=== PATIENT | female | born 1975 | race Caucasian/White ===

== ENCOUNTER 2017-08-09 13:10 | Inpatient (IN) | payer MEDICAID ==
[~2017-08-09] VITALS: Ht 157.5 cm; Wt 99.8 kg
[~2017-08-09 13:10] MED LIST: ASEN10TA9 PO; BENZ1TAB61 PO; CLON0.12 PO; DIVA125T3 PO; FLUC50TA3 PO; FLUP10TA MT; LEVO50TA5 PO; LISI-170 PO
[2017-08-09] MEDS ORDERED: LORA1TAB PO (13:30)
[2017-08-09] MEDS ORDERED: OXCA300T3 PO (13:30)
[2017-08-09] MEDS ORDERED: TOPI50TA35 PO (13:30)
[2017-08-09] MEDS ORDERED: DIVA500T2 PO ×3 (13:30)
[2017-08-09] MEDS ORDERED: [UNRECOGNIZED DRUG - OTHER] PO (13:30)
[2017-08-09 13:59] LABS: HEMATOCRIT 35.8 % (34.6-47.8); HEMOGLOBIN 12.2 g/dL (11.7-16.4); WHITE BLOOD COUNT 8.1 x10^3/uL (3.4-10)
[2017-08-09 14:12] LABS: BLOOD UREA NITROGEN 9 mg/dL (7-18)
[2017-08-09 14:23] LABS: ASPARTATE AMINO TRANSFERASE 8 U/L (15-37)
[2017-08-09 14:25] LABS: ACETAMINOPHEN < 2 mcg/mL (10-30)
[2017-08-09 14:58] LABS: DAU SCREEN DISCLAIMER
[2017-08-09] MEDS ORDERED: ONDANSETRON 2MG/ML, 2ML IVPush PRN (15:30)
[2017-08-09] MEDS ORDERED: LACTULOSE 3.3 GM/5 ML ORAL.SOL RC ONE (15:30)
[2017-08-09] MEDS ORDERED: ONDANSETRON 2MG/ML, 2ML ONE (15:37)
[2017-08-09 16:36] VITALS: BP 114/70
[2017-08-09 18:44] VITALS: BP 114/84
[2017-08-09] MEDS ORDERED: LACTULOSE 20 GM/30 ML UDC PO SCH (20:00)
[2017-08-09] MEDS: OXCARBAZEPINE 150 MG TABLET PO SCH (20:26)
[2017-08-09] MEDS: TOPIRAMATE 25 MG TABLET PO SCH (20:26)
[2017-08-10 01:07] VITALS: BP 119/82
[2017-08-10 05:31] LABS: BLOOD UREA NITROGEN 8 mg/dL (7-18)
[2017-08-10 05:35] LABS: ASPARTATE AMINO TRANSFERASE 13 U/L (15-37)
[2017-08-10 07:38] VITALS: BP 122/74
[2017-08-10] MEDS: OXCARBAZEPINE 150 MG TABLET PO SCH ×2 (09:16→20:20)
[2017-08-10] MEDS: TOPIRAMATE 25 MG TABLET PO SCH ×2 (09:16→20:20)
[2017-08-10] MEDS: IBUPROFEN 200 MG TABLET PO PRN (13:54)
[2017-08-10] MEDS: HALOPERIDOL 5 MG/ML IM PRN (14:49)
[2017-08-10 18:41] VITALS: BP 121/77
[2017-08-10] MEDS ORDERED: NICOTINE 21 MG/24 HR PATCH.TD24 TD ONE (21:00)
[2017-08-11 01:15] VITALS: BP 134/84
[2017-08-11] MEDS ORDERED: GUAIFENESIN/DM 200-20MG, 10ML UDC PO PRN (11:00)
[2017-08-11] MEDS: TOPIRAMATE 25 MG TABLET PO SCH ×2 (11:37→20:00)
[2017-08-11] MEDS: OXCARBAZEPINE 150 MG TABLET PO SCH ×2 (11:37→20:00)
[2017-08-11 19:16] VITALS: BP 147/96
[2017-08-11] MEDS: HALOPERIDOL 5 MG/ML IM PRN (19:20)
[2017-08-12] MEDS: OXCARBAZEPINE 150 MG TABLET PO SCH ×2 (08:46→19:50)
[2017-08-12] MEDS: TOPIRAMATE 25 MG TABLET PO SCH ×2 (08:46→21:25)
[2017-08-12 12:04] VITALS: BP 150/85
[2017-08-12 19:06] VITALS: BP 149/91
[2017-08-12] MEDS ORDERED: HALOPERIDOL 5 MG TABLET PO PRN (19:30)
[2017-08-12] MEDS: HALOPERIDOL 5 MG/ML IM PRN (23:05)
[2017-08-13 02:50] VITALS: BP 138/87
[2017-08-13] MEDS ORDERED: ZIPRASIDONE 20 MG INJ IM ONE ×3 (03:00→20:00)
[2017-08-13] MEDS: TOPIRAMATE 25 MG TABLET PO SCH ×2 (09:20→20:11)
[2017-08-13] MEDS: OXCARBAZEPINE 150 MG TABLET PO SCH ×2 (09:49→20:11)
[2017-08-13] MEDS: IBUPROFEN 200 MG TABLET PO PRN ×2 (11:14→20:20)
[2017-08-13] MEDS: HALOPERIDOL 5 MG TABLET PO PRN ×2 (11:30→22:35)
[2017-08-13] MEDS: HALOPERIDOL 5 MG/ML IM PRN (14:08)
[2017-08-13 20:09] VITALS: BP 146/108
[2017-08-14] MEDS ORDERED: ZIPRASIDONE 20 MG INJ IM PRN (03:30)
[2017-08-14 07:30] VITALS: BP 151/95
[2017-08-14] MEDS: TOPIRAMATE 25 MG TABLET PO SCH ×2 (07:55→20:01)
[2017-08-14] MEDS: OXCARBAZEPINE 150 MG TABLET PO SCH ×3 (07:55→20:07)
[2017-08-14] MEDS: HALOPERIDOL 5 MG TABLET PO PRN ×2 (12:11→20:02)
[2017-08-14 19:00] VITALS: BP 134/89
[2017-08-14] MEDS ORDERED: AMIKACIN 1000 MG/4 ML IM ONE (22:30)
[2017-08-15 00:27] VITALS: BP 98/51
[2017-08-15] MEDS: HALOPERIDOL 5 MG TABLET PO PRN (00:37)
[2017-08-15] MEDS ORDERED: ZIPRASIDONE 20MG CAPSULE ONE (09:45)
[2017-08-15] MEDS: TOPIRAMATE 25 MG TABLET PO SCH (09:47)
[2017-08-15] MEDS: OXCARBAZEPINE 150 MG TABLET PO SCH (09:48)
[2017-08-15] MEDS ORDERED: ZIPRASIDONE 20MG CAPSULE PO SCH (10:00)
[2017-08-15] MEDS ORDERED: RIFAXIMIN 550 MG TABLET PO SCH ×2 (10:00→21:00)
== END 2017-08-15 11:31 | DRG 642 ==
LOC: ED 13:35 → EDIP 15:10 → 3NE 16:25 → 2N 08-11 17:47
PROVIDERS: ADMIT Family Medicine; ATTEND Family Medicine
DX: E72.20 Disorder of urea cycle metabolism, unspecified (principal); E66.01 Morbid (severe) obesity due to excess calories; Z68.41 Body mass index [BMI] 40.0-44.9, adult; F25.9 Schizoaffective disorder, unspecified; F29 Unspecified psychosis not due to a substance or known physiological condition; Z90.49 Acquired absence of other specified parts of digestive tract; Z79.899 Other long term (current) drug therapy
CPT/HCPCS: 36415; 76700; 80053; 80156; 80164; 80307; 80329; 81001; 82140; 83605; 83735; 84443; 84630; 85025; 85610; 87086; 93005; 96374; J2405; J3486; G0479; G0480; J1630

== ENCOUNTER 2018-02-02 13:40 | Emergency (ER) | payer MEDICAID ==
[~2018-02-02] VITALS: Ht 160 cm; Wt 82.0 kg
[~2018-02-02 13:40] MED LIST changes: +DIVA500T2 PO; +LORA1TAB PO; +OXCA300T3 PO; +TOPI50TA35 PO; +[UNRECOGNIZED DRUG - OTHER] PO
[2018-02-02 13:50] VITALS: BP 162/93
[2018-02-02] MEDS ORDERED: SODIUM CHLORIDE FLUSH 10ML SYR IVF ONE (14:00)
[2018-02-02 14:19] LABS: BASOPHILS # (AUTO) 0.05 x10^3/uL (0-0.1); BASOPHILS % (AUTO) 1 % (0-1); EOSINOPHILS # (AUTO) 0.37 x10^3/uL (0-0.4); EOSINOPHILS % (AUTO) 4 % (1-7); LYMPHOCYTES # (AUTO) 2.56 x10^3/uL (1-3.4); LYMPHOCYTES % (AUTO) 31 % (22-44); MD NO; MEAN CORPUSCULAR HEMOGLOBIN 29.9 pg (27.0-34.8); MEAN CORPUSCULAR HGB CONC 32.9 g/dL (32.4-35.8); MEAN CORPUSCULAR VOLUME 90.9 fL (80-100); MEAN PLATELET VOLUME 7.1 fL (7.4-10.4); MONOCYTES # (AUTO) 0.87 x10^3/uL (0.2-0.8); MONOCYTES % (AUTO) 10 % (2-9); NEUTROPHILS # (AUTO) 4.51 x10^3/uL (1.8-6.8); NEUTROPHILS % (AUTO) 54 % (42-75); PLATELET COUNT 317 x10^3/uL (130-400); RED BLOOD COUNT 4.43 x10^6/uL (3.82-5.3); RED CELL DISTRIBUTION WIDTH 15.1 % (9.6-15.2)
[2018-02-02 14:28] LABS: ALBUMIN 3.5 g/dL (3.4-5.0); ANION GAP 6 mmol/L (5-15); CALCIUM 8.2 mg/dL (8.5-10.1); CHLORIDE 103 mmol/L (98-107)
[2018-02-02 14:31] LABS: ALANINE AMINOTRANSFERASE 17 U/L (12-78); ALKALINE PHOSPHATASE 63 U/L (45-117); BILIRUBIN,TOTAL 0.2 mg/dL (0.2-1.0); CREATININE 0.51 mg/dL (0.55-1.02); TOTAL PROTEIN 7.2 g/dL (6.4-8.2)
== END 2018-02-02 15:03 | disposition left against medical advice (07) ==
LOC: ED 14:07
DX: R53.1 Weakness (principal); Z00.00 Encounter for general adult medical examination without abnormal findings
CPT/HCPCS: 36415; 80053; 82140; 83690; 85025; 99284

== ENCOUNTER 2019-01-09 11:28 | Emergency (ER) | payer MEDICAID ==
[~2019-01-09] VITALS: Ht 154.9 cm; Wt 70.0 kg
[~2019-01-09 11:28] MED LIST changes: -DIVA125T3 PO; +DIVA125T31 PO
[2019-01-09] MEDS ORDERED: ZIPRASIDONE 20 MG INJ IM ONE ×5 (11:35→22:30)
--- NOTE | 2019-01-09 11:46 | NUR ---
PATIENT BROUGHT IN BY [facility] STAFF. PATIENT WAS [id number] TODAY BUT BECAME PSYCHOTIC AND UNREASONABLE WITH THE OVEN OPERATOR AUTOMATIC. SHE WAS PLACED ON A LEGAL 2000 BECAUSE SHE WAS NOT SAFE FOR DISCHARGE. PATIENT ARRIVED IN [facility] ER AND WAS NOT COOEPRATIVE, NEEDED A SHOW OF FORCE AND VERBAL PROMPTING BY BOTH RN'S AND SECURITY. PATIENT AGREES TO CHANGE INTO GOWN, BUT REFUSES TEMPERTURE AND GIVING A URINE. ADRIANETN BECAME INCREASINGLY LOUD VERBALLY AND HAS A HISTORY AT THIS HOPITAL AND AT HE [facility] OF BECOMING VIOLENT. PATIENT IS CURRENTLL ON HER MENSES AND WAS GIVEN CLEAN UNDERWEAR AND PADS. PATIENT REFUSED LAB DRAW. SITTER AT BEDSIDE
[2019-01-09] MEDS ORDERED: PLEASE ENTER HEIGHT AND WEIGHT MC SCH (12:00)
[2019-01-09] MEDS ORDERED: PLEASE ENTER ALLERGIES MC SCH (12:00)
--- NOTE | 2019-01-09 12:11 | NUR ---
MEAL TRAY ORDERED, PATIENT STATES THAT SHE WILL COOPERATE WITH BLOOD DRAW AT THIS TIME
--- NOTE | 2019-01-09 12:19 | NUR ---
PATIENT COOPERATIVE WITH BLOOD DRAW AT THIS TIME
[2019-01-09 12:32] LABS: BASOPHILS # (AUTO) 0.07 x10^3/uL (0-0.1); BASOPHILS % (AUTO) 1 % (0-1); EOSINOPHILS # (AUTO) 0.25 x10^3/uL (0-0.4); EOSINOPHILS % (AUTO) 2 % (1-7); LYMPHOCYTES # (AUTO) 2.28 x10^3/uL (1-3.4); LYMPHOCYTES % (AUTO) 18 % (22-44); MD NO; MEAN CORPUSCULAR HEMOGLOBIN 29.5 pg (27.0-34.8); MEAN CORPUSCULAR VOLUME 86.6 fL (80-100); MEAN PLATELET VOLUME 8.1 fL (7.4-10.4); MONOCYTES # (AUTO) 0.79 x10^3/uL (0.2-0.8); MONOCYTES % (AUTO) 6 % (2-9); NEUTROPHILS # (AUTO) 9.56 x10^3/uL (1.8-6.8); NEUTROPHILS % (AUTO) 74 % (42-75); PLATELET COUNT 320 x10^3/uL (130-400); RED BLOOD COUNT 5.27 x10^6/uL (3.82-5.3); RED CELL DISTRIBUTION WIDTH 17.3 % (9.6-15.2)
[2019-01-09 12:41] LABS: ALBUMIN 3.8 g/dL (3.4-5.0); ANION GAP 5 mmol/L (5-15); CALCIUM 8.8 mg/dL (8.5-10.1); CHLORIDE 106 mmol/L (98-107); CREATININE 0.63 mg/dL (0.55-1.02)
[2019-01-09 12:43] LABS: ACETAMINOPHEN < 2 mcg/mL (10-30); SALICYLATE LEVEL < 1.7 mg/dL (2.8-20.0)
--- NOTE | 2019-01-09 13:49 | NUR ---
SPOKE WITH CRISS HUTCHINSON RN [phone], [phone] WHO HAD INFORMATION ON PATIENT'S DISCHARGE
--- NOTE | 2019-01-09 15:13 | NUR ---
SPOKE WITH AGUSTIN MANCUSO ABOUT MED HISTORY
[2019-01-09] MEDS ORDERED: LORazepam 1MG TABLET PO PRN (15:30)
--- NOTE | 2019-01-09 15:31 | NUR ---
PATIENT BECAME IRRITATED WITH SOC AND HAD BEHAVIOR THAT APPEARED TO WANT TO BE PHYSICALLY VIOLENT TOWARDS STAFF AND SOC MONITOR. MD UNABLE TO COMPLETE THE EXAM. MD NOTIFIED OF PATIENT BEHAVIOR AND PATIENT GIVEN 10 MG IM GEODON. PATIENT NEEDED SHOW OF FORCE BY BECKYY TO COMPLETE THIS
--- NOTE | 2019-01-09 15:33 | NUR ---
SITTER AT BS
--- NOTE | 2019-01-09 16:08 | NUR ---
PATIETN CALMER, MEAL TRAY ORDERED
--- NOTE | 2019-01-09 16:35 | NUR ---
PATIENT GIVEN MEAL TRAY
--- NOTE | 2019-01-09 17:14 | NUR ---
PATIENT RESTING. INITALLY ASKED SITTER FOR ANOTHER SHOT BUT WHEN ASKED BY RN, SHE DECLINED. Les OFFERED ATIVAN PO AND SHE ALSO DECLINED THIS
--- NOTE | 2019-01-09 19:08 | NUR ---
REPORT RECEIVED FROM JHON CERVANTES, ASSUMING CARE AT THIS TIME. PT SLEEPING IN ROOM, RR EVEN AND UNLABORED, SITTER IN GAN FOR CONTINUOUS MONITORING
--- NOTE | 2019-01-09 20:30 | NUR ---
PT SLEEPING IN BED, RR EVEN AND UNLABORED. ALL NEEDS MET AT THIS TIME. SITTER IN GAN FOR CONTINUOUS MONITORING
--- NOTE | 2019-01-09 21:20 | NUR ---
PT SLEEPING IN BED, RR EVEN AND UNLABORED. ALL NEEDS MET AT THIS TIME. SITTER IN GAN FOR CONTINUOUS MONITORING
--- NOTE | 2019-01-09 22:03 | NUR ---
PT WOKE UP AND IMMEDIATELY STARTED YELLING, WHEN APPROACHED BY SITTER PT SWUNG AT THEM. SECURITY CALLED AND NOTIFED. ORDER FOR DEIDRA RECIEVED. PT MEDICATED. PT CURRENTLY SITTING IN BED. REQUESTED SPRITE, GIVEN. ASKED PT IF SHE HAD ANY OTHER NEEDS, NO REQUESTS AT THIS TIME. SITTER IN GAN FOR CONINUOUS MONITORING
--- NOTE | 2019-01-09 22:37 | NUR ---
PT UP TO RESTROOM WITH STEADY GAIT, UA COLLECTED AND SENT TO LAB. PT CURRENTLY BACK IN ROOM SITTING ON BED. SITTER IN GAN FOR CONTINUOUS MONITORING
[2019-01-09 22:56] LABS: AMPHETAMINE SCREEN, URINE Negative (Negative); BARBITURATE SCREEN, URINE Negative (Negative); BENZODIAZEPINE SCREEN, URINE Negative (Negative); CANNABINOID SCREEN, URINE Negative (Negative); COCAINE SCREEN, URINE Negative (Negative); METHADONE SCREEN, URINE Negative (Negative); OPIATE SCREEN, URINE Negative (Negative)
--- NOTE | 2019-01-09 23:04 | NUR ---
RECEIVED REPORT FROM ANGELICA DE LEON RN TO ASSUME CARE OF PT.
--- NOTE | 2019-01-09 23:41 | NUR ---
PT. RESTING ON GURNEY WITH NADN. RIGHT SIDE LYING. RESP VISIBLE AND NON-LABORED. ROOM IS SECURED AND SITTER IN GAN.
--- NOTE | 2019-01-09 23:54 | NUR ---
PACKET FAXED TO [facility] AND [facility]. AWAITING FAX CONFIRMATION.
--- NOTE | 2019-01-10 00:38 | NUR ---
BREAK RN: PT SLEEPING. EVEN RISE AND FALL OF CHEST OBSERVED. SITTER IN VIEW OF PT
--- NOTE | 2019-01-10 01:03 | NUR ---
CONFIRMATION FAX RECEIVED FOR [facility] AND [facility].
--- NOTE | 2019-01-10 01:46 | NUR ---
PT. RESTING ON GURNEY WITH EYES CLOSED. NADN. NON-LABORED RESPIRATIONS VISIBLE.
--- NOTE | 2019-01-10 02:42 | NUR ---
PT. CONTINUES RESTING ON GURNEY WITH EYES CLOSED. NADN. RESP VISIBLE AND NON-LABORED. ROOM REMAINS SECURED. SITTER IN GAN.
--- NOTE | 2019-01-10 03:57 | NUR ---
PT. REMAINS ON GURNEY IN SUPINE POSITION WITH EYES CLOSED. NADN. EVEN CHEST RISE/FALL VISIBLE. ROOM SECURED. SITTER IN GAN.
--- NOTE | 2019-01-10 04:49 | NUR ---
PT. REMAINS ON GURNEY IN SUPINE POSITION WITH EYES CLOSED. NADN. EVEN CHEST RISE/FALL VISIBLE. ROOM SECURED. SITTER IN AGN.
--- NOTE | 2019-01-10 05:48 | NUR ---
PT. RESTING ON GURNEY WITH NADN. RESPIRATIONS REMAIN EVEN AND NON LABORED. ROOM REMAINS SECURED. SITTER IN GAN.
--- NOTE | 2019-01-10 07:04 | NUR ---
REPORT TO BILLY MCLAUGHLIN. PT. CONTINUES RESTING ON GURNEY WITH EYES CLOSED. NADN. ROOM REMAINS SECURED. SITTER IN GAN.
--- NOTE | 2019-01-10 07:33 | NUR ---
Recieved bedside report from BILLY Donaldson. All questions answered. Assuming care of pt. Pt requesting coffee. Provided pt decaf coffee and moved pt from [place] to hospital bed. Provided pt feminine napkin and new disposable underwear. Pt appreciative. Pt has unlabored respirations with even chest rise and fall. NADN. Pt smiling and cooperative with staff. No other needs expressed at this time.
--- NOTE | 2019-01-10 07:38 | NUR ---
Sitter near doorway in direct line of sight for observation.
--- NOTE | 2019-01-10 08:17 | NUR ---
Provided pt breakfast tray. Pt appreciative. Pt requesting coffee. Provided pt decaf coffee. Pt smiling and says, "Thank you." Pt denies any other needs at this time. Pt begins eating breakfast tray. AGUILA. Sitter near doorway in direct line of sight for observation.
--- NOTE | 2019-01-10 09:09 | NUR ---
Pt requesting sprite. Pt provided a sprite. Pt appreciative. NADN. No other needs expressed at this time.
[2019-01-10] MEDS ORDERED: LORazepam 1MG TABLET ONE (09:25)
[2019-01-10 10:18] VITALS: BP 136/84
--- NOTE | 2019-01-10 11:07 | NUR ---
Pt provided feminine napkins. Pt states, "Thank you." Pt provided medication for anxiety per EMAR per pt request. Pt took medication and stated appreciation. Pt denies other needs at this time. NADN. Pt laying supine on hospital bed awake. Sitter near doorway in direct line of sight for observation. Lunch tray ordered.
--- NOTE | 2019-01-10 12:07 | NUR ---
Provided bedside report to BILLY Gutiérrez. All questions answered. BILLY Gutiérrez to assume care of pt's at this time.
--- NOTE | 2019-01-10 12:39 | NUR ---
REPORT FROM ARNOLDO CERVANTES AT 1200. MEAL TRAY PROVIDED, SITTER REMAINS AT DOORWAY FOR CLOSE OBS.
--- NOTE | 2019-01-10 13:42 | NUR ---
PT SLEEPING, NAD, SITTER AT DOORWAY.
--- NOTE | 2019-01-10 14:28 | NUR ---
PT AWAKE, PROVIDED SPRITE ON REQUEST.
--- NOTE | 2019-01-10 14:51 | NUR ---
REPORT TO MICHELLE AT [facility], ACCEPTING PT AT THIS TIME. TRANSPORT BEING ARRANGED BY THROUGHPUT.
--- NOTE | 2019-01-10 15:50 | NUR ---
NO BELONGING BAG FOUND IN LOCKER. PT WEARING GOWN, SPORTS BRA, AND UNDERPANTS. PT ASKED IF CAME WITH BELONGINGS FROM [facility] AND PT STATES "NO, THEY STOLE THEM AT THE [facility]. I GAVE DOCTOR $3000 TO BUY ME A NEW DRESS AND HE JUST STOLE THE MONEY, NO DRESS".
== END 2019-01-10 16:16 ==
LOC: EDBD 11:28 → ED 13:26 → MERGE 13:26 → UNDOADMIN 15:25 → EDIP 15:25 → ED 01-10 16:16
DX: F29 Unspecified psychosis not due to a substance or known physiological condition (principal); F17.200 Nicotine dependence, unspecified, uncomplicated
CPT/HCPCS: 36415; 80048; 80307; 82040; 84703; 85025; 96372; 99285; J3486

== ENCOUNTER 2019-02-07 13:23 | Inpatient (IN) | payer MEDICAID ==
[~2019-02-07] VITALS: Ht 157.5 cm; Wt 90.0 kg
[2019-02-07] MEDS ORDERED: OLANZAPINE 5 MG TABLET PO ONE (13:30)
--- NOTE | 2019-02-07 13:43 | NUR ---
SEE TRIAGE NOTE. PT SEEN HERE LAST MONTH FOR PSYCHOSIS, ON MENSES AT THAT TIME AND REFUSED PADS. ATTEMPT TO BREATHALYZE, PT REFUSES TO COOPERATE. ED SUP INFORMED OF NEED FOR SITTER.
[2019-02-07 13:55] LABS: BASOPHILS # (AUTO) 0.08 x10^3/uL (0-0.1); BASOPHILS % (AUTO) 1 % (0-1); EOSINOPHILS # (AUTO) 0.22 x10^3/uL (0-0.4); EOSINOPHILS % (AUTO) 2 % (1-7); LYMPHOCYTES # (AUTO) 2.03 x10^3/uL (1-3.4); LYMPHOCYTES % (AUTO) 16 % (22-44); MD NO; MEAN CORPUSCULAR HEMOGLOBIN 29.8 pg (27.0-34.8); MEAN CORPUSCULAR HGB CONC 32.8 g/dL (32.4-35.8); MEAN PLATELET VOLUME 7.6 fL (7.4-10.4); MONOCYTES # (AUTO) 0.76 x10^3/uL (0.2-0.8); MONOCYTES % (AUTO) 6 % (2-9); NEUTROPHILS # (AUTO) 9.53 x10^3/uL (1.8-6.8); NEUTROPHILS % (AUTO) 76 % (42-75); PLATELET COUNT 359 x10^3/uL (130-400); RED BLOOD COUNT 4.58 x10^6/uL (3.82-5.3); RED CELL DISTRIBUTION WIDTH 16.9 % (9.6-15.2)
[2019-02-07] MEDS ORDERED: OLANZAPINE 5 MG TABLET ONE (13:56)
[2019-02-07 14:04] LABS: ALANINE AMINOTRANSFERASE 15 U/L (12-78); ALBUMIN 3.5 g/dL (3.4-5.0); ANION GAP 5 mmol/L (5-15); CALCIUM 8.5 mg/dL (8.5-10.1); CHLORIDE 106 mmol/L (98-107)
[2019-02-07 14:06] LABS: ALKALINE PHOSPHATASE 66 U/L (45-117); BILIRUBIN,TOTAL 0.4 mg/dL (0.2-1.0); SALICYLATE LEVEL < 1.7 mg/dL (2.8-20.0); TOTAL PROTEIN 6.9 g/dL (6.4-8.2)
--- NOTE | 2019-02-07 14:08 | NUR ---
REPORT FROM REKHA CERVANTES. PT MOVED TO ROOM 40, AMBULATORY WITH STEADY GAIT, FOR CLOSE OBSERVATION WITH SITTER IN PLACE. ROOM SECURED FOR SAFETY. PT DISPLAYS DILUSIONAL THINKING. STATED "IDID MY OWN SURGEY I DON'T KNOW WHY YOU GUYS ARE FREAKING OUT. I WANT TO GET OUT OF HERE. I'M ON MY BLUETOOTH. I HAD TO REATTACH MY INSIDES TO MY BRAIN." PT APPERAS TO HAVE MENSTRAL BLEEDING ON LEGS. PT ASNWERS ORIENTATION QUESTIONS APPROPRIATLY, A&OX4. NEURO APPEARS INTACT DESPITE DELUSIONAL THINKING. PT DENIES ANY MEDICAL HISTORY. NO VISABLE SIGNS OF TRAUMA OR INJURY. PT DENIES ANY PAIN OR HEAD INJURIES.
--- NOTE | 2019-02-07 14:08 | NUR ---
REPORT FROM REKHA CERVANTES. PT MOVED TO ROOM 40.
--- NOTE | 2019-02-07 14:19 | NUR ---
PT BELONGINGS, 1 BAG, CLOTHES, SECURED IN ED LOCKER.
--- NOTE | 2019-02-07 14:47 | NUR ---
PT AMBULATORY TOBATHROOM WITH STEADY GAIT. STATES SHE IS UNABLE TO URINATE. SITTER IN PLACE.
--- NOTE | 2019-02-07 15:27 | NUR ---
PT RESTING ON GURNEY WITH EYES CLOSED. RESP EVEN AND UNLABORED. SITTER IN PLACE.
--- NOTE | 2019-02-07 15:47 | NUR ---
PT PROVIDED WITH WATER. ADVISED NEED FOR UA.
--- NOTE | 2019-02-07 15:48 | NUR ---
ED SECURITY DIET TRAY PROVIDED TO PT.
--- NOTE | 2019-02-07 16:12 | NUR ---
PT AMBULATORY TO BATHROOM WITH STEADY GAIT FOR URINE SAMPLE. WHILE IN BATHROOM PT SCREAMING "I CAN'T PEE IF I DON'T HAVE LIVER AND KIDNEYS. I AM GOING TO REPORT YOU FOR DOING SURGERY ON MY BODY. ALL YOU ARE GOING TO HELL. I HOPE YOU LIKE THE SNOW." PT WALKED BACK TO ROOM AND NOW RESTING ON GURNEY WITH SITTER IN PLACE.
--- NOTE | 2019-02-07 16:33 | NUR ---
PT AMBULATORY TO BATHROOM WITH STEADY GAIT. URINE SAMPLE OBTAINED AND WALKED TO LAB. PT BACK TO ROOM, RESTING ON GURNEY. SITTER IN PLACE WITH EYES ON PT.
[2019-02-07 16:57] LABS: AMPHETAMINE SCREEN, URINE Negative (Negative); BARBITURATE SCREEN, URINE Negative (Negative); BENZODIAZEPINE SCREEN, URINE Negative (Negative); CANNABINOID SCREEN, URINE Positive (Negative); COCAINE SCREEN, URINE Negative (Negative); METHADONE SCREEN, URINE Negative (Negative); OPIATE SCREEN, URINE Negative (Negative)
--- NOTE | 2019-02-07 17:04 | NUR ---
Delma melendrez in [facility] - 02/07/19 at [address] MURRAY PT WILL REMAIN ADMIT TO HOSPITAL.
--- NOTE | 2019-02-07 17:54 | NUR ---
PT RESTING ON [facility]. VSS. SITTER IN PLACE WITH EYES ON PT.
--- NOTE | 2019-02-07 18:57 | NUR ---
SBAR HANDOFF REPORT TO LAY CERVANTES
--- NOTE | 2019-02-07 18:58 | NUR ---
STEFANI FAXED PT PAPERWORK TO , [facility], AND [facility].
--- NOTE | 2019-02-07 19:01 | NUR ---
Pt report from Michael rothman. This rn to assume care of pt. Sleeping comfortably on gurney. Rr even and unlabored.
--- NOTE | 2019-02-07 19:10 | NUR ---
Patient assessed by [facility]. Refused at 3E by psychiatrist. [facility] director refused for 2N.
--- NOTE | 2019-02-07 20:34 | NUR ---
Sleeping comfortably on gurney. Rr even and unlabored.
--- NOTE | 2019-02-07 21:40 | NUR ---
Given decaf coffee and milk per request. No other immediate needs.
[2019-02-07] MEDS: OXCARBAZEPINE 300MG TABLET PO SCH (22:09)
--- NOTE | 2019-02-07 22:21 | NUR ---
Pt refusing night time medications. Sleeping comfortably on gurdoug. Jazmine.
--- NOTE | 2019-02-07 23:01 | NUR ---
Sleeping comfortably on gurney. Rr even and unlabored.
--- NOTE | 2019-02-08 00:21 | NUR ---
FLOAT RN: PT RESTING IN ROOM. SITTER AT DOOR. NO ACUTE DISTRESS NOTED. WILL CONTINUE TO MONITOR WHILE PRIMARY RN IS ON BREAK.
--- NOTE | 2019-02-08 01:01 | NUR ---
Sleeping comfortably on gurney. Rr even and unlabored.
--- NOTE | 2019-02-08 02:22 | NUR ---
Sleeping comfortably on gurney. Rr even and unlabored.
--- NOTE | 2019-02-08 03:10 | NUR ---
Sleeping comfortably on gurney. Rr even and unlabored.
--- NOTE | 2019-02-08 04:10 | NUR ---
Sleeping comfortably on gurney. Rr even and unlabored.
--- NOTE | 2019-02-08 05:25 | NUR ---
Sleeping comfortably on gurney. Rr even and unlabored.
[2019-02-08 06:50] LABS: BASOPHILS # (AUTO) 0.03 x10^3/uL (0-0.1); BASOPHILS % (AUTO) 0 % (0-1); EOSINOPHILS # (AUTO) 0.32 x10^3/uL (0-0.4); EOSINOPHILS % (AUTO) 3 % (1-7); LYMPHOCYTES # (AUTO) 2.24 x10^3/uL (1-3.4); LYMPHOCYTES % (AUTO) 23 % (22-44); MD NO; MEAN CORPUSCULAR HEMOGLOBIN 29.8 pg (27.0-34.8); MEAN CORPUSCULAR HGB CONC 32.6 g/dL (32.4-35.8); MEAN CORPUSCULAR VOLUME 91.7 fL (80-100); MEAN PLATELET VOLUME 7.6 fL (7.4-10.4); MONOCYTES # (AUTO) 0.65 x10^3/uL (0.2-0.8); MONOCYTES % (AUTO) 7 % (2-9); NEUTROPHILS # (AUTO) 6.72 x10^3/uL (1.8-6.8); NEUTROPHILS % (AUTO) 68 % (42-75); PLATELET COUNT 300 x10^3/uL (130-400); RED BLOOD COUNT 4.49 x10^6/uL (3.82-5.3); RED CELL DISTRIBUTION WIDTH 16.6 % (9.6-15.2)
[2019-02-08 06:56] LABS: ANION GAP 5 mmol/L (5-15); CALCIUM 8.6 mg/dL (8.5-10.1); CHLORIDE 108 mmol/L (98-107)
[2019-02-08 06:58] LABS: CREATININE 0.52 mg/dL (0.55-1.02)
[2019-02-08] MEDS ORDERED: LISINOPRIL 20 MG TABLET ONE (08:37)
[2019-02-08] MEDS ORDERED: LORazepam 1MG TABLET ONE ×3 (08:38→20:08)
[2019-02-08] MEDS: LORazepam 1MG TABLET PO PRN ×3 (08:46→20:10)
[2019-02-08] MEDS: OXCARBAZEPINE 300MG TABLET PO SCH ×2 (08:46→20:10)
[2019-02-08] MEDS: LISINOPRIL 20 MG TABLET PO SCH (08:47)
--- NOTE | 2019-02-08 08:52 | NUR ---
PT DENIES ANY CURRENT THOUGHTS OF HARMING HERSELF, AND SHE REFUSES TO GIVE DETAILS ABOUT PAST ATTEMPTS. PT IS PARANOID AND DELUSIONAL, THINKS PEOPLE ARE TRYING TO HARM HER AND "FUCK UP HER LIFE". PT STATES "I AM ONLY 15 YEARS OLD, THIS IS NO TYPE OF LIFE FOR A KID. SYBIL DEY SAYS I LOOK LIKE A MAN". NO ACUTE SIGNS OF DISTRESS. PT IS CURRENTLY CALM AND COOPERATING WITH MEDS AND MOST QUESTIONS.
--- NOTE | 2019-02-08 09:16 | NUR ---
SPOKE WITH RONY TY REGARDING PT. HE WOULD LIKE TO BE UPDATED ABOUT WHERE THE PT WILL GO. HE SAID THAT SHE WAS JUST RELEASED FROM A PSYCH FACILITY AND A LEGAL HOLD ON 01/29/19. HE GAVE ME INFO REGARDING PT MEDICATIONS, WILL UPDATE MED REC.
[2019-02-08] MEDS: LEVOTHYROXINE 50 MCG TABLET PO SCH (09:23)
[2019-02-08] MEDS: TOPIRAMATE 25 MG TABLET PO SCH (09:23)
--- NOTE | 2019-02-08 09:27 | NUR ---
PT CALM AND RESTING IN BED. PT GIVEN FOOD AND JUICE, TOLERATING FOOD. VSS. NO ACUTE SIGNS OF DISTRESS.
--- NOTE | 2019-02-08 10:01 | NUR ---
REPORT TO WISAM CERVANTES
--- NOTE | 2019-02-08 10:01 | NUR ---
REPORT TO WISAM CERVANTES
--- NOTE | 2019-02-08 11:41 | NUR ---
pt in room at this time. pt resting comfortably with even resps. lunch ordered for pt at and awaiting arrival. room secured at this time and sitter in hallway.
--- NOTE | 2019-02-08 13:59 | NUR ---
pt up in room screaming and punching the air. pt redirected to bed and encouraged to calm down. pt offered juice and sprite in safety cups. pt no in bed calm and quiet Addendum: 02/08/19 at 1401 by ARMANDO now in bed.
--- NOTE | 2019-02-08 14:42 | NUR ---
PT RESTING AT THIS TIME. ROOM SECURE AND SITTER IN GAN.
--- NOTE | 2019-02-08 18:05 | NUR ---
Pt calm and cooporative. Bedding and gown changed d/t blood
--- NOTE | 2019-02-08 19:40 | NUR ---
pt cooperative with vitals, see charted. pt sitting calmly in bed. pt finished dinner tray. tray removed from room. sitter at door. will continue to monitor.
--- NOTE | 2019-02-08 20:15 | NUR ---
PT ASKING FOR MULTIPLE BEVERAGES FROM SITTER. ASKING FOR COFFEE, WATER, JUICE ETC. PT GIVEN WATER WITH MEDS. PT MAKING STRANGE STATEMENTS ABOUT A MAN NAMED SANDOVAL WHO IS AFTER HER. PT SINGING IN ROOM. PT GIVEN DECAF COFFEE. SITTER AT DOOR FOR FREQUENT OBS.
--- NOTE | 2019-02-08 21:08 | NUR ---
PT ASKING FOR CRANBERRY JUICE. PT INFORMED SHE CAN HAVE JUICE IN A LITTLE SHE JUST HAD WATER AND COFFEE. PT SEEMS OKAY WITH THIS FOR NOW. WILL CONTINUE TO MONITOR. SITTER ON FREQUENT WATCH OF PT.
--- NOTE | 2019-02-08 22:09 | NUR ---
PT CONTINUING TO ASK SITTERS FREQUENTLY FOR BEVERAGES. PT GIVEN SPRITE BY SITER, PT STATED AFTER DRINKING THE SPRITE, THAT IT HURT HER STOMACH. PT INFORMED TO LET HER STOMACH REST SINCE IT IS NOW HURT. PT SITTING IN BED TALKING TO NO ONE. WILL CONTINUE TO MONITOR.
--- NOTE | 2019-02-08 23:45 | NUR ---
pt getting in and out of bed. pt offered meds to help her sleep. pt stated no, "I just have to move because the asbestos is blowing in my face." pt given more decaf coffee. will continue to monitor. sitter at door.
--- NOTE | 2019-02-09 00:12 | NUR ---
PT STANDING BEHIND CURTAINS AND IN DOOR. PT SITTING IN BED AT TIMES. PT AGAIN REFUSED OFFERED MEDS TO HELP HER SLEEP. PT STATED, "I'VE BEEN SLEEPING ALL WEEK, I NEED TO BE AWAKE NOW." SITTER AT DOOR FOR FREQUENT OBS.
--- NOTE | 2019-02-09 01:39 | NUR ---
PT SITTING UP ON BED, TALKING TO SITTER.
--- NOTE | 2019-02-09 02:53 | NUR ---
PT ATTEMPTED TO LEAVE UNIT. PT WALKED BACK TO HER ROOM WITHOUT INCIDENT. PT STATED SHE IS HUNGRY. PT TO RECEIVE SNACK. WILL CONTINUE TO MONITOR.
--- NOTE | 2019-02-09 03:00 | NUR ---
OFFERED PT CRACKERS, PT STATED, "I DON'T WANT ANYTHING FROM YOU, I'M WAITING FOR THE POLICE TO SHOW UP." PT SITTING UP ON BED, SITTER AT DOOR. WILL CONTINUE TO MONITOR.
[2019-02-09] MEDS ORDERED: LORazepam 2 MG/ML, 1ML ONE (03:31)
[2019-02-09] MEDS ORDERED: LORazepam 2 MG/ML, 1ML IM ONE (03:45)
--- NOTE | 2019-02-09 03:50 | NUR ---
PT BECOMING HIGHLY AGITATED. HOSPITALIST CALLED FOR ORDERS. MED ORDERS GIVEN. PT MEIDCATED WITH ORDERED MED WITH SECURITY ASSIST. PT WILL ING TO ACCEPT CRACKERS FROM SECURITY. PT UP TO THE BATHROOM STEADILY WITH SITTER. PT NOW BACK IN BED EATING CRACKERS. WILL CONTINUE TO MONITOR.
--- NOTE | 2019-02-09 04:45 | NUR ---
PT RESTING IN BED WITH EYES CLOSED. PT SNORING, REST NON LABORED. SITTER AT DOOR. WILL CONTINUE TO MONITOR.
--- NOTE | 2019-02-09 05:23 | NUR ---
PT RESTING IN BED WITH EYES LCOSED. WILL CONTINUE TO MONITOR. SITTER AT DOOR FOR OBS.
--- NOTE | 2019-02-09 06:43 | NUR ---
PT RESTING IN BED WITH EYES LCOSED. WILL CONTINUE TO MONITOR. SITTER AT DOOR FOR OBS.
--- NOTE | 2019-02-09 07:47 | NUR ---
PT SITTING UP IN BED, NO ACUTE S/S OF DISTRESS. DENIES ANY NEEDS AT THIS TIME. SITTER MONITORING FROM [facility] FOR SAFETY
--- NOTE | 2019-02-09 08:19 | NUR ---
PT SLEEPING IN GURNEY. AROUSES TO VOICE. PT PROVIDED WITH MEAL TRAY. DENIES FURTHER NEEDS AT THIS TIME. SITTER MONITORING FROM [facility]
--- NOTE | 2019-02-09 08:29 | NUR ---
PT INFORMED THAT SHE IS ON A LEGAL HOLD AND GOING TO RM 261. PT AGREEABLE AT THIS TIME
[2019-02-09 08:45] VITALS: BP 136/86
[2019-02-09] MEDS: LISINOPRIL 20 MG TABLET PO SCH (08:47)
[2019-02-09] MEDS: LORazepam 1MG TABLET PO PRN ×2 (08:47→20:48)
[2019-02-09] MEDS: TOPIRAMATE 25 MG TABLET PO SCH (08:49)
[2019-02-09] MEDS: LEVOTHYROXINE 50 MCG TABLET PO SCH (08:49)
[2019-02-09] MEDS: OXCARBAZEPINE 300MG TABLET PO SCH ×2 (08:49→20:48)
[2019-02-09 10:32] LABS: HCG UR SG 1.014 (1.003-1.030)
[2019-02-09] MEDS ORDERED: NICOTINE 14MG/24 HR PATCH.TD24 TD SCH (11:00)
[2019-02-09 19:20] VITALS: BP 134/81
[2019-02-09] MEDS ORDERED: ZIPRASIDONE 20MG CAPSULE PO SCH (21:00)
== END 2019-02-10 02:20 | DRG 885 ==
LOC: ED 13:50 → EDIP 18:10 → 2N 02-09 08:38
PROVIDERS: ADMIT Internal Medicine; ATTEND Internal Medicine
DX: F25.9 Schizoaffective disorder, unspecified (principal); F17.210 Nicotine dependence, cigarettes, uncomplicated
CPT/HCPCS: 36415; 80048; 80053; 80307; 81025; 85025; 99285; G0378; J2060

== ENCOUNTER 2019-03-19 23:39 | Emergency (ER) | payer MEDICAID ==
[~2019-03-19] VITALS: Ht 162.6 cm; Wt 80.0 kg
[2019-03-19 23:49] VITALS: BP 128/68
== END 2019-03-20 00:32 | disposition home or self-care (01) ==
LOC: EDBD → MERGE 23:39 → ED 03-20 00:20
DX: F28 Other psychotic disorder not due to a substance or known physiological condition (principal); F22 Delusional disorders; F25.0 Schizoaffective disorder, bipolar type
CPT/HCPCS: 99284

== ENCOUNTER 2020-06-19 14:13 | Emergency (ER) | payer MEDICAID ==
[~2020-06-19] VITALS: Ht 162.6 cm; Wt 90.9 kg
[~2020-06-19 14:13] MED LIST changes: -FLUP10TA MT; +FLUP10TA3 MT
--- NOTE | 2020-06-19 15:01 | NUR ---
BIB EMS FROM [facility] FOR SOB X 2 DAYS W/ INCREASED BILAT LEG SWELLING. PT COUGHING THINGS UP. N/V X 2 WEEKS. PT SATING 87-88% RA PLACED ON 2L NC NOW SATING 96%. HX ASTHMA. VS MOLD CARPENTER BS 133, HR 95, BP 129/78. MONITORS APPLIED. VSS. PERSONAL BELONGINGS BAG (1 OF 1) PLACED IN SECURE LOCKER. PT CURRENTLY AT [facility]. PT STATES SHE HAS BEEN THERE FOR A VERY LONG TIME. PT NOT ON LEGAL HOLD PER PAPERWORK SENT FROM [facility]. PER EMS PT AT [facility] FOR FAILURE TO THRIVE.
--- NOTE | 2020-06-19 15:02 | NUR ---
MARKETING MANAGERBENJIE PRESTON AT BEDSIDE PERFORMING EKG.
[2020-06-19 16:06] LABS: BASOPHILS % (AUTO) 1 % (0-1); EOSINOPHILS % (AUTO) 5 % (1-7); LYMPHOCYTES % (AUTO) 14 % (22-44); MEAN CORPUSCULAR HEMOGLOBIN 26.7 pg (27.0-34.8); MEAN CORPUSCULAR HGB CONC 31.4 g/dL (32.4-35.8); MEAN PLATELET VOLUME 7.3 fL (7.4-10.4); MONOCYTES % (AUTO) 8 % (2-9); NEUTROPHILS % (AUTO) 72 % (42-75); PLATELET COUNT 300 x10^3/uL (130-400)
[2020-06-19 16:07] LABS: ALBUMIN 3.4 g/dL (3.4-5.0); CALCIUM 8.7 mg/dL (8.5-10.1); CHLORIDE 109 mmol/L (98-107)
--- NOTE | 2020-06-19 16:07 | NUR ---
PT PROVIDED W/ SNACKS.
[2020-06-19 16:14] LABS: ALANINE AMINOTRANSFERASE 19 U/L (12-78); ALKALINE PHOSPHATASE 60 U/L (45-117); BILIRUBIN,TOTAL 0.3 mg/dL (0.2-1.0); CREATININE 0.51 mg/dL (0.55-1.02); TOTAL PROTEIN 6.9 g/dL (6.4-8.2); TROPONIN I < 0.015 ng/mL (0.000-0.045)
[2020-06-19 16:18] LABS: ANION GAP 3 mmol/L (5-15)
[2020-06-19 16:25] LABS: MD NO
--- NOTE | 2020-06-19 16:36 | NUR ---
ERP DR. ARCHER AT BEDSIDE FOR RE-EVAL.
[2020-06-19] MEDS ORDERED: ALBUTEROL/IPRATROPIUM 2.5MG/0.5MG, 3 ML NPPB ONE (17:00)
[2020-06-19] MEDS ORDERED: ALBUTEROL/IPRATROPIUM 2.5MG/0.5MG, 3 ML ONE (17:02)
--- NOTE | 2020-06-19 17:09 | NUR ---
DAGMAR TX COMPLETED. PT RESTING ON ADY. NADN. CHENS.
--- NOTE | 2020-06-19 17:58 | NUR ---
SPOKE W/ EDPA JUAN CARLOS IN REGARDS TO PT O2 SATS WHILE IN ED. PT NOTED TO DESAT W/O O2 TO 85-86% WHILE AWAKE AND WHILE ASLEEP DESATS TO 75%. PER EDPA PT CAN BE SENT HOME W/ O2.
--- NOTE | 2020-06-19 18:05 | NUR ---
ROSALINA MORRIS FROM [facility] CALLED AND STATES THAT IF PT REQUIRES O2 THEY CANNOT ACCEPT PT BACK TO FACILITY SUPPLIES WOULD BE A RISK IN THE PSYCH [place].
--- NOTE | 2020-06-19 18:16 | NUR ---
MOISÉS FROM [facility] CONFIRMS PT CANNOT GO BACK TO THEIR FACILITY ON O2.
--- NOTE | 2020-06-19 18:23 | NUR ---
report received from saurav rothman.
--- NOTE | 2020-06-19 18:24 | NUR ---
DISCUSSED POC W/ ERP DR. ARCHER IN REGARDS TO PT'S O2 SATS AND DC HOME TO [facility]. PER ERP NOTHING ACUTE W/ PT AND SHE CAN BE DC'D BACK TO [facility] W/O O2 SHE HAS BEEN CHRONICALLY HYPOXIC PER PT'S [facility] CHART. REPORT TO DIAMOND TANG RN.
--- NOTE | 2020-06-19 18:25 | NUR ---
THIS RN TALKED TO ROSALINA MORRIS FROM [facility] AND STATES THAT IF PT DOESN'T REQUIRES O2 THEN THEY CAN ACCEPT PT BACK TO FACILITY.
--- NOTE | 2020-06-19 18:27 | NUR ---
[facility] [phone]
--- NOTE | 2020-06-19 18:57 | NUR ---
REPORT GIVEN TO ANATOLY CERVANTES.
--- NOTE | 2020-06-19 18:59 | NUR ---
FIRST CONTACT WITH PT, PT SITTING UP IN BED. INADVERTENTLY PULLED OUT IV. PT SPEAKS FULL SENTENCES, O2 SAT 90-93% ON RA, HR 99. WAIITNG FOR ERP RE-EVAL TX BACK TO PSYCH FACILITY. SITTERS OUTSIDE ROOM. WILL CONTINUE TO MONITOR. AIDET PROVIDED.
--- NOTE | 2020-06-19 19:25 | NUR ---
PT UP AMBULATES AROUND ROOM, SPEAKS FULL SENTENCES, O2 SAT REMAINS 90-92% RA. SITTER REMAINS OUTSIDE DOOR, WILL CONTINUE TO MONITOR. AIDET PROVIDED.
--- NOTE | 2020-06-19 20:08 | NUR ---
pt remains with stable o2 sats, 92% ra, hr 91. walking around room, speaks full sentences, wanting to go for cigarette. pt informed of policies. pt to be discharged from ER to [facility] via bls. report to lorna thompson at [facility]. pt aware of discharge/transfer back to [facility] and is in agreement. throughput nurse arranging tx, all cobra/emtala forms filled.
--- NOTE | 2020-06-19 21:02 | NUR ---
2100: no change in assessment. waiting on ems bls transport back to [facility]. sitter remains outside room in line of site.
[2020-06-19 21:32] VITALS: BP 145/89
== END 2020-06-19 21:42 ==
LOC: ED 19:08
DX: J44.1 Chronic obstructive pulmonary disease with (acute) exacerbation (principal); G47.30 Sleep apnea, unspecified; R09.02 Hypoxemia; I48.92 Unspecified atrial flutter; I21.9 Acute myocardial infarction, unspecified; I11.9 Hypertensive heart disease without heart failure; E03.9 Hypothyroidism, unspecified; F17.200 Nicotine dependence, unspecified, uncomplicated
CPT/HCPCS: 36415; 71045; 80053; 83880; 84484; 84703; 85025; 93005; 94640; 99285

== ENCOUNTER 2021-01-06 16:46 | Inpatient (IN) | payer MEDICAID ==
[~2021-01-06] VITALS: Ht 157.5 cm; Wt 109.0 kg
--- NOTE | 2021-01-06 17:08 | NUR ---
PT BIBA FROM [facility], EMS REPORTS PT WAS EXPERIENCING SOB AND SPO2 WAS IN 70S. PT HAS HX OF SCHIZOPHRENIA, PNA, AND ASPIRATION PNA. PT A&O X 2, RESPS EVEN AND UNLABORED, VSS. MONITORS ATTACHED, APPEALS OFFICER AT BEDSIDE FOR EVAL.
--- NOTE | 2021-01-06 17:10 | NUR ---
PT ARRIVED WITH NO BELONGINGS
--- NOTE | 2021-01-06 17:20 | NUR ---
HARPAL OCASIO AT BEDSIDE FOR EVAL.
--- NOTE | 2021-01-06 17:22 | NUR ---
sitter at bedside, safety precautions in place.
[2021-01-06 18:06] LABS: BASOPHILS % (AUTO) 1 % (0-1); EOSINOPHILS % (AUTO) 3 % (1-7); LYMPHOCYTES % (AUTO) 14 % (22-44); MEAN CORPUSCULAR HEMOGLOBIN 26.2 pg (27.0-34.8); MEAN CORPUSCULAR HGB CONC 31.6 g/dL (32.4-35.8); MEAN PLATELET VOLUME 7.3 fL (7.4-10.4); MONOCYTES % (AUTO) 10 % (2-9); NEUTROPHILS % (AUTO) 73 % (42-75); PLATELET COUNT 298 x10^3/uL (130-400); RED BLOOD COUNT 4.21 x10^6/uL (3.82-5.3); RED CELL DISTRIBUTION WIDTH 19.2 % (9.6-15.2)
[2021-01-06 18:12] LABS: MD NO
[2021-01-06 18:16] LABS: ALANINE AMINOTRANSFERASE 12 U/L (12-78); ALBUMIN 3.2 g/dL (3.4-5.0); CALCIUM 8.9 mg/dL (8.5-10.1); CREATININE 0.52 mg/dL (0.55-1.02)
[2021-01-06 18:21] LABS: ALKALINE PHOSPHATASE 72 U/L (45-117); ANION GAP 3 mmol/L (5-15); BILIRUBIN,TOTAL 0.4 mg/dL (0.2-1.0); CHLORIDE 102 mmol/L (98-107); TOTAL PROTEIN 6.6 g/dL (6.4-8.2); TROPONIN I < 0.015 ng/mL (0.000-0.045)
--- NOTE | 2021-01-06 18:46 | NUR ---
REPORT RECEIVED FROM AMY CERVANTES
[2021-01-06] MEDS ORDERED: ALBUTEROL/IPRATROPIUM 2.5MG/0.5MG, 3 ML ONE ×2 (18:50→19:03)
[2021-01-06] MEDS ORDERED: ALBUTEROL/IPRATROPIUM 2.5MG/0.5MG, 3 ML NPPB SCH ×2 (19:00→22:00)
--- NOTE | 2021-01-06 19:37 | NUR ---
PT PLACED ON CPAP BY RT PER ERP ORDER. PT RESTING CALMLY. NO ADDITIONAL NEEDS AT THIS TIME. CONTINUOUS MONITORING IN PLACE. SITTER IN VIEW. Addendum: 01/06/21 at 2040 by MINGALLS PT PLACED ON BIPAP BY RT PER ERP ORDER. PT RESTING CALMLY. NO ADDITIONAL NEEDS AT THIS TIME. CONTINUOUS MONITORING IN PLACE. SITTER IN VIEW.
[2021-01-06 19:44] LABS: FREE T4 (FREE THYROXINE) 0.97 ng/dL (0.76-1.46)
--- NOTE | 2021-01-06 20:03 | NUR ---
PT RESTING COMFORTABLY WITH EYES CLOSED, NADN, VSS. TOLERATING CPAP WELL. PT DENIES ANY NEEDS. SITTER REMAINS AT BEDSIDE.
[2021-01-06] MEDS ORDERED: DOCUSATE 100 MG CAPSULE PO PRN (20:30)
[2021-01-06] MEDS ORDERED: BISACODYL 10 MG SUPP PR PRN (20:30)
[2021-01-06] MEDS ORDERED: PROMETHAZINE 25 MG/ML, 1ML IM PRN (20:30)
[2021-01-06] MEDS ORDERED: POLYETHYLENE GLYCOL 17 GM PACKET PO PRN (20:30)
[2021-01-06] MEDS ORDERED: ENOXAPARIN 40 MG/0.4 ML SQ SCH (20:30)
[2021-01-06] MEDS ORDERED: morphine SULFATE 10 MG/ML, 1ML IVPush PRN (20:30)
[2021-01-06] MEDS ORDERED: ONDANSETRON ODT 4 MG PO PRN (20:30)
[2021-01-06] MEDS ORDERED: hydrALAzine 20 MG/ML, 1ML IVPush PRN (20:30)
[2021-01-06] MEDS ORDERED: ONDANSETRON 2MG/ML, 2ML IVPush PRN (20:30)
[2021-01-06] MEDS ORDERED: ENOXAPARIN 40 MG/0.4 ML ONE (21:07)
[2021-01-06] MEDS: SODIUM CHLORIDE 0.9% 1,000 ML IV SCH (21:12)
--- NOTE | 2021-01-06 21:15 | NUR ---
RT AT BEDSIDE CHANGING BIPAP SETTING. PT MORE DROWSY, OPENS EYES TO VERBAL COMMAND BUT THEN QUICKLY RETURNS TO SLEEP. NO NEEDS AT THIS TIME. SITTER AT BEDSIDE
--- NOTE | 2021-01-06 21:23 | NUR ---
Pt to be admitted to CCU, room 542. Report called to LAY CERVANTES.
[2021-01-06] MEDS: ALBUTEROL/IPRATROPIUM 2.5MG/0.5MG, 3 ML NPPB SCH ×2 (22:42→22:44)
[2021-01-06] MEDS: methylPREDNISolone SOD SUCC 125 MG/2 ML IVPush SCH (23:03)
[2021-01-06] MEDS: DOXYCYCLINE 100 MG in DEXTROSE 5% 250 ML IV SCH (23:03)
[2021-01-07] MEDS: ALBUTEROL/IPRATROPIUM 2.5MG/0.5MG, 3 ML NPPB SCH ×6 (02:50→20:00)
[2021-01-07] MEDS: methylPREDNISolone SOD SUCC 125 MG/2 ML IVPush SCH ×4 (03:07→22:03)
[2021-01-07] MEDS: SODIUM CHLORIDE 0.9% 1,000 ML IV SCH ×2 (03:08→08:24)
[2021-01-07 04:26] LABS: BASOPHILS % (AUTO) 0 % (0-1); EOSINOPHILS % (AUTO) 0 % (1-7); LYMPHOCYTES % (AUTO) 6 % (22-44); MEAN CORPUSCULAR HGB CONC 31.5 g/dL (32.4-35.8); MEAN PLATELET VOLUME 7.8 fL (7.4-10.4); MONOCYTES % (AUTO) 1 % (2-9); NEUTROPHILS % (AUTO) 93 % (42-75); PLATELET COUNT 283 x10^3/uL (130-400); RED BLOOD COUNT 4.31 x10^6/uL (3.82-5.3); RED CELL DISTRIBUTION WIDTH 19.4 % (9.6-15.2)
[2021-01-07 04:36] LABS: ALBUMIN 3.2 g/dL (3.4-5.0); ANION GAP 3 mmol/L (5-15); CALCIUM 8.7 mg/dL (8.5-10.1); CHLORIDE 103 mmol/L (98-107)
[2021-01-07 04:45] LABS: ALANINE AMINOTRANSFERASE 13 U/L (12-78); ALKALINE PHOSPHATASE 75 U/L (45-117); BILIRUBIN,TOTAL 0.4 mg/dL (0.2-1.0); CHOL/HDL RATIO 3.8; CHOLESTEROL, TOTAL 137 mg/dL (140-239); CREATININE 0.61 mg/dL (0.55-1.02); HDL CHOL % 26 % (28-40); HDL CHOLESTEROL (DIRECT) 36 mg/dL (40-60); LDL CHOLESTEROL,CALCULATED 82 mg/dL (54-169); LDL/HDL RATIO 2.3 (0.5-3.0); TOTAL PROTEIN 6.9 g/dL (6.4-8.2); TRIGLYCERIDES 96 mg/dL (50-200); VLDL CHOLESTEROL 19 mg/dL (0-25)
[2021-01-07 04:47] LABS: MD MORPH REVIEW ONLY; POLYCHROMASIA 1+
[2021-01-07 04:48] LABS: <PLATELET ESTIMATE> ADEQUATE; ANISOCYTOSIS 1+; MICROCYTOSIS 1+; SMALL PLATELETS 1+
[2021-01-07 04:49] LABS: HYPOCHROMIA 1+; STOMATOCYTES 1+
[2021-01-07] MEDS ORDERED: [UNRECOGNIZED DRUG - REMARK] MC SCH (09:00)
[2021-01-07] MEDS: DOXYCYCLINE 100 MG in DEXTROSE 5% 250 ML IV SCH ×2 (10:46→21:37)
[2021-01-07] MEDS: ENOXAPARIN 30 MG/0.3 ML SQ SCH (14:00)
[2021-01-07] MEDS: ACETAMINOPHEN 325 MG TABLET PO PRN ×2 (15:24→22:10)
[2021-01-07] MEDS ORDERED: GABA600T7 PO (16:58)
[2021-01-07] MEDS ORDERED: NICO-486 TD (16:58)
[2021-01-07] MEDS ORDERED: ZIPR60CA2 PO (16:58)
[2021-01-07] MEDS ORDERED: DIPH25CA61 PO (16:58)
[2021-01-07] MEDS ORDERED: AMLO-211 PO (16:58)
[2021-01-07] MEDS ORDERED: HALO5TAB5 PO (16:58)
[2021-01-07] MEDS ORDERED: FLUT1DIS3 INH (16:58)
[2021-01-07] MEDS ORDERED: LITH300C PO (16:58)
[2021-01-07] MEDS ORDERED: LORA2TAB99 PO (16:58)
[2021-01-07 20:07] VITALS: BP 144/84
[2021-01-07] MEDS ORDERED: DIPHENHYDRAMINE 25 MG CAPSULE PO PRN (20:30)
[2021-01-07] MEDS ORDERED: HALOPERIDOL 5 MG TABLET PO PRN (20:30)
[2021-01-07] MEDS ORDERED: FAMOTIDINE 20 MG/2 ML IVPush SCH (21:00)
[2021-01-07] MEDS ORDERED: FAMOTIDINE 20 MG TABLET PO SCH (21:00)
[2021-01-07] MEDS: OXCARBAZEPINE 300MG TABLET PO SCH (21:59)
[2021-01-07] MEDS: LITHIUM CARBONATE 300 MG CAPSULE PO SCH (21:59)
[2021-01-08 00:04] VITALS: BP 109/74
[2021-01-08] MEDS: LORazepam 1MG TABLET PO PRN ×2 (00:32→22:07)
[2021-01-08] MEDS: ENOXAPARIN 30 MG/0.3 ML SQ SCH ×2 (02:00→15:32)
[2021-01-08] MEDS: ACETAMINOPHEN 325 MG TABLET PO PRN ×3 (04:37→17:52)
[2021-01-08] MEDS: LEVOTHYROXINE 50 MCG TABLET PO SCH (04:37)
[2021-01-08] MEDS: methylPREDNISolone SOD SUCC 125 MG/2 ML IVPush SCH ×2 (04:37→09:03)
[2021-01-08 06:27] VITALS: BP 134/72
[2021-01-08] MEDS: ALBUTEROL/IPRATROPIUM 2.5MG/0.5MG, 3 ML NPPB SCH ×4 (07:15→19:19)
[2021-01-08] MEDS: AMLODIPINE 10 MG TAB PO SCH (09:02)
[2021-01-08] MEDS: LITHIUM CARBONATE 300 MG CAPSULE PO SCH ×2 (09:02→20:18)
[2021-01-08] MEDS: ZIPRASIDONE 20MG CAPSULE PO SCH (09:02)
[2021-01-08] MEDS: TOPIRAMATE 25 MG TABLET PO SCH (09:02)
[2021-01-08] MEDS: LISINOPRIL 20 MG TABLET PO SCH (09:02)
[2021-01-08] MEDS: LORazepam 1MG TABLET PO SCH (09:03)
[2021-01-08] MEDS: NICOTINE 14MG/24 HR PATCH.TD24 TD SCH (09:03)
[2021-01-08] MEDS: DOXYCYCLINE 100 MG in DEXTROSE 5% 250 ML IV SCH (11:07)
[2021-01-08] MEDS: OXCARBAZEPINE 300MG TABLET PO SCH ×2 (11:07→20:18)
[2021-01-08 14:04] VITALS: BP 99/64
[2021-01-08] MEDS: DOXYCYCLINE 100MG TABLET PO SCH (20:18)
[2021-01-08 20:20] VITALS: BP 124/76
[2021-01-08] MEDS: OXYcodone IR 5MG TABLET PO PRN (21:17)
[2021-01-09 01:12] VITALS: BP 126/84
[2021-01-09] MEDS: ENOXAPARIN 30 MG/0.3 ML SQ SCH ×2 (02:00→14:00)
[2021-01-09] MEDS: ACETAMINOPHEN 325 MG TABLET PO PRN ×2 (05:50→22:31)
[2021-01-09] MEDS: LEVOTHYROXINE 50 MCG TABLET PO SCH (05:50)
[2021-01-09 07:00] VITALS: BP 125/84
[2021-01-09] MEDS: ALBUTEROL/IPRATROPIUM 2.5MG/0.5MG, 3 ML NPPB SCH (07:00)
[2021-01-09] MEDS: DOXYCYCLINE 100MG TABLET PO SCH ×2 (08:42→22:30)
[2021-01-09] MEDS: LITHIUM CARBONATE 300 MG CAPSULE PO SCH ×2 (08:42→22:30)
[2021-01-09] MEDS: TOPIRAMATE 25 MG TABLET PO SCH (08:42)
[2021-01-09] MEDS: AMLODIPINE 10 MG TAB PO SCH (08:42)
[2021-01-09] MEDS: OXCARBAZEPINE 300MG TABLET PO SCH ×2 (08:42→22:31)
[2021-01-09] MEDS: LISINOPRIL 20 MG TABLET PO SCH (08:43)
[2021-01-09] MEDS: NICOTINE 14MG/24 HR PATCH.TD24 TD SCH (08:43)
[2021-01-09] MEDS: ZIPRASIDONE 20MG CAPSULE PO SCH (08:43)
[2021-01-09] MEDS: LORazepam 1MG TABLET PO SCH (08:43)
[2021-01-09] MEDS ORDERED: ALBUTEROL/IPRATROPIUM 2.5MG/0.5MG, 3 ML NPPB PRN (11:00)
[2021-01-09 12:51] LABS: BASOPHILS % (AUTO) 0 % (0-1); EOSINOPHILS % (AUTO) 0 % (1-7); LYMPHOCYTES % (AUTO) 8 % (22-44); MEAN CORPUSCULAR HEMOGLOBIN 25.7 pg (27.0-34.8); MEAN CORPUSCULAR HGB CONC 31.4 g/dL (32.4-35.8); MEAN PLATELET VOLUME 7.4 fL (7.4-10.4); MONOCYTES % (AUTO) 7 % (2-9); NEUTROPHILS % (AUTO) 86 % (42-75); PLATELET COUNT 380 x10^3/uL (130-400); RED BLOOD COUNT 4.59 x10^6/uL (3.82-5.3); RED CELL DISTRIBUTION WIDTH 18.9 % (9.6-15.2)
[2021-01-09 12:58] VITALS: BP 117/77
[2021-01-09 13:00] LABS: ANION GAP 3 mmol/L (5-15); CHLORIDE 104 mmol/L (98-107); CREATININE 0.57 mg/dL (0.55-1.02)
[2021-01-09 13:47] LABS: MD SCAN
[2021-01-09 21:00] VITALS: BP 144/89
[2021-01-10] MEDS: ENOXAPARIN 30 MG/0.3 ML SQ SCH ×2 (02:00→15:00)
[2021-01-10] MEDS: LEVOTHYROXINE 50 MCG TABLET PO SCH (06:20)
[2021-01-10 07:30] VITALS: BP 144/85
[2021-01-10] MEDS: NICOTINE 14MG/24 HR PATCH.TD24 TD SCH (08:02)
[2021-01-10] MEDS: ZIPRASIDONE 20MG CAPSULE PO SCH (08:03)
[2021-01-10] MEDS: LORazepam 1MG TABLET PO SCH (08:04)
[2021-01-10] MEDS: DOXYCYCLINE 100MG TABLET PO SCH ×2 (08:04→20:27)
[2021-01-10] MEDS: LISINOPRIL 20 MG TABLET PO SCH (08:04)
[2021-01-10] MEDS: LITHIUM CARBONATE 300 MG CAPSULE PO SCH ×2 (08:04→20:28)
[2021-01-10] MEDS: AMLODIPINE 10 MG TAB PO SCH (08:05)
[2021-01-10] MEDS: TOPIRAMATE 25 MG TABLET PO SCH (08:05)
[2021-01-10] MEDS: OXCARBAZEPINE 300MG TABLET PO SCH ×2 (08:06→20:28)
[2021-01-10 13:09] VITALS: BP 121/83
[2021-01-10 20:00] VITALS: BP 128/78
[2021-01-11] MEDS: ENOXAPARIN 30 MG/0.3 ML SQ SCH ×2 (01:25→14:00)
[2021-01-11 01:30] VITALS: BP 117/81
[2021-01-11] MEDS: LEVOTHYROXINE 50 MCG TABLET PO SCH (06:00)
[2021-01-11 06:37] VITALS: BP 139/82
[2021-01-11] MEDS: LORazepam 1MG TABLET PO SCH (09:00)
[2021-01-11] MEDS: OXCARBAZEPINE 300MG TABLET PO SCH ×2 (09:23→21:41)
[2021-01-11] MEDS: ZIPRASIDONE 20MG CAPSULE PO SCH (09:23)
[2021-01-11] MEDS: DOXYCYCLINE 100MG TABLET PO SCH ×2 (09:24→21:42)
[2021-01-11] MEDS: LISINOPRIL 20 MG TABLET PO SCH (09:24)
[2021-01-11] MEDS: AMLODIPINE 10 MG TAB PO SCH (09:24)
[2021-01-11] MEDS: TOPIRAMATE 25 MG TABLET PO SCH (09:25)
[2021-01-11] MEDS: LITHIUM CARBONATE 300 MG CAPSULE PO SCH ×2 (09:25→21:42)
[2021-01-11] MEDS: NICOTINE 14MG/24 HR PATCH.TD24 TD SCH (09:38)
[2021-01-11] MEDS: METOPROLOL TARTRATE 25 MG TAB PO SCH ×2 (09:41→18:20)
[2021-01-11 12:17] VITALS: BP 126/82
[2021-01-11 19:52] VITALS: BP 109/72
[2021-01-12] VITALS (8 sets, daily range): BP systolic 94–121; BP diastolic 61–79
[2021-01-12] MEDS: ENOXAPARIN 30 MG/0.3 ML SQ SCH ×2 (02:00→14:00)
[2021-01-12] MEDS: METOPROLOL TARTRATE 25 MG TAB PO SCH ×2 (06:00→17:49)
[2021-01-12] MEDS: LEVOTHYROXINE 50 MCG TABLET PO SCH (06:03)
[2021-01-12] MEDS: LORazepam 1MG TABLET PO SCH (08:21)
[2021-01-12] MEDS: LITHIUM CARBONATE 300 MG CAPSULE PO SCH ×2 (08:21→19:57)
[2021-01-12] MEDS: DOXYCYCLINE 100MG TABLET PO SCH ×2 (08:21→19:58)
[2021-01-12] MEDS: AMLODIPINE 10 MG TAB PO SCH (08:22)
[2021-01-12] MEDS: LISINOPRIL 20 MG TABLET PO SCH (08:22)
[2021-01-12] MEDS: OXCARBAZEPINE 300MG TABLET PO SCH ×2 (08:22→19:58)
[2021-01-12] MEDS: TOPIRAMATE 25 MG TABLET PO SCH (08:22)
[2021-01-12] MEDS: NICOTINE 14MG/24 HR PATCH.TD24 TD SCH (08:25)
[2021-01-12] MEDS: ZIPRASIDONE 20MG CAPSULE PO SCH (08:35)
[2021-01-12] MEDS: OXYcodone IR 5MG TABLET PO PRN ×2 (14:19→20:06)
[2021-01-12] MEDS: ACETAMINOPHEN 325 MG TABLET PO PRN (17:49)
[2021-01-13 00:10] VITALS: BP 91/61
[2021-01-13] MEDS: ACETAMINOPHEN 325 MG TABLET PO PRN (00:51)
[2021-01-13] MEDS: ENOXAPARIN 30 MG/0.3 ML SQ SCH ×2 (00:52→14:00)
[2021-01-13] MEDS ORDERED: ONDANSETRON ODT 4 MG PO PRN (02:00)
[2021-01-13 05:09] VITALS: BP 132/61
[2021-01-13] MEDS: METOPROLOL TARTRATE 25 MG TAB PO SCH (05:11)
[2021-01-13] MEDS: LEVOTHYROXINE 50 MCG TABLET PO SCH (05:12)
[2021-01-13 08:19] VITALS: BP 105/69
[2021-01-13] MEDS: LORazepam 1MG TABLET PO SCH (09:50)
[2021-01-13] MEDS: OXCARBAZEPINE 300MG TABLET PO SCH ×2 (09:51→21:16)
[2021-01-13] MEDS: TOPIRAMATE 25 MG TABLET PO SCH (09:51)
[2021-01-13] MEDS: ZIPRASIDONE 20MG CAPSULE PO SCH (09:51)
[2021-01-13] MEDS: LISINOPRIL 20 MG TABLET PO SCH (09:52)
[2021-01-13] MEDS: LITHIUM CARBONATE 300 MG CAPSULE PO SCH ×2 (09:52→21:16)
[2021-01-13] MEDS: AMLODIPINE 10 MG TAB PO SCH (09:52)
[2021-01-13] MEDS: NICOTINE 14MG/24 HR PATCH.TD24 TD SCH (09:52)
[2021-01-13] MEDS: ALBUTEROL HFA 90 MCG/SPRAY INH SCH ×2 (09:59→19:27)
[2021-01-13 12:10] VITALS: BP 100/66
[2021-01-13 19:04] VITALS: BP 110/72
[2021-01-14 00:29] VITALS: BP 129/79
[2021-01-14] MEDS: ENOXAPARIN 30 MG/0.3 ML SQ SCH ×2 (01:43→14:25)
[2021-01-14] MEDS: LEVOTHYROXINE 50 MCG TABLET PO SCH (05:49)
[2021-01-14 06:35] LABS: MEAN CORPUSCULAR HEMOGLOBIN 25.7 pg (27.0-34.8); MEAN CORPUSCULAR HGB CONC 31.6 g/dL (32.4-35.8); MEAN PLATELET VOLUME 7.2 fL (7.4-10.4); PLATELET COUNT 379 x10^3/uL (130-400); RED BLOOD COUNT 4.78 x10^6/uL (3.82-5.3); RED CELL DISTRIBUTION WIDTH 18.9 % (9.6-15.2)
[2021-01-14 06:50] LABS: ANION GAP 4 mmol/L (5-15); CALCIUM 8.7 mg/dL (8.5-10.1); CHLORIDE 105 mmol/L (98-107)
[2021-01-14 06:51] LABS: CREATININE 0.53 mg/dL (0.55-1.02)
[2021-01-14 07:04] LABS: MD YES
[2021-01-14 07:06] LABS: BAND#(MANUAL) 0.19 x10^3/uL; BANDS%(MANUAL) 1 % (0-7); EOS#(MANUAL) 0.19 x10^3/uL (0.0-0.4); EOS% (MANUAL) 1 % (1-7); LYMPH#(MANUAL) 2.47 x10^3/uL (1-3.4); LYMPHS% (MANUAL) 13 % (22-44); METAMYELOCYTES# (MANUAL) 0.38 x10^3/uL (0-0); METAMYELOCYTES% (MANUAL) 2 % (0-1); MONOS#(MANUAL) 0.57 x10^3/uL (0.3-2.7); MONOS% (MANUAL) 3 % (2-9); SEGS% (MANUAL) 80 % (42-75)
[2021-01-14 07:07] LABS: ANISOCYTOSIS 1+
[2021-01-14 07:09] LABS: <PLATELET ESTIMATE> ADEQUATE; <PLT MORPHOLOGY> NORMAL PLT MORPH; HYPOCHROMIA 1+; MICROCYTOSIS 1+; POLYCHROMASIA 1+; STOMATOCYTES 1+
[2021-01-14 07:57] VITALS: BP 108/63
[2021-01-14] MEDS: ALBUTEROL HFA 90 MCG/SPRAY INH SCH ×2 (08:16→20:14)
[2021-01-14] MEDS: OXCARBAZEPINE 300MG TABLET PO SCH ×2 (09:03→20:51)
[2021-01-14] MEDS: LITHIUM CARBONATE 300 MG CAPSULE PO SCH ×2 (09:03→20:50)
[2021-01-14] MEDS: LORazepam 1MG TABLET PO SCH (09:03)
[2021-01-14] MEDS: TOPIRAMATE 25 MG TABLET PO SCH (09:03)
[2021-01-14] MEDS: LISINOPRIL 20 MG TABLET PO SCH (09:03)
[2021-01-14] MEDS: AMLODIPINE 10 MG TAB PO SCH (09:03)
[2021-01-14] MEDS: ZIPRASIDONE 20MG CAPSULE PO SCH (09:03)
[2021-01-14] MEDS: NICOTINE 14MG/24 HR PATCH.TD24 TD SCH (09:04)
[2021-01-14 20:00] VITALS: BP 155/76
[2021-01-14] MEDS: LORazepam 1MG TABLET PO PRN (20:50)
[2021-01-15 02:00] VITALS: BP 114/88
[2021-01-15] MEDS: ENOXAPARIN 30 MG/0.3 ML SQ SCH (03:00)
[2021-01-15] MEDS: LEVOTHYROXINE 50 MCG TABLET PO SCH (06:11)
[2021-01-15 07:16] VITALS: BP 100/74
[2021-01-15] MEDS: ALBUTEROL HFA 90 MCG/SPRAY INH SCH (07:35)
[2021-01-15] MEDS: ZIPRASIDONE 20MG CAPSULE PO SCH (08:01)
[2021-01-15] MEDS: LITHIUM CARBONATE 300 MG CAPSULE PO SCH (08:02)
[2021-01-15] MEDS: LORazepam 1MG TABLET PO SCH (08:02)
[2021-01-15] MEDS: LISINOPRIL 20 MG TABLET PO SCH (08:02)
[2021-01-15] MEDS: AMLODIPINE 10 MG TAB PO SCH (08:02)
[2021-01-15] MEDS: TOPIRAMATE 25 MG TABLET PO SCH (08:02)
[2021-01-15] MEDS: OXCARBAZEPINE 300MG TABLET PO SCH (08:03)
[2021-01-15] MEDS: NICOTINE 14MG/24 HR PATCH.TD24 TD SCH (08:07)
[2021-01-15] MEDS ORDERED: ALBU18HF INH (09:17)
[2021-01-15] MEDS ORDERED: PRED10TA PO (09:17)
== END 2021-01-15 12:44 | DRG 133 ==
LOC: ED 19:18 → EDIP 19:19 → CCU 21:51 → 3N 01-07 23:55
PROVIDERS: ADMIT Internal Medicine; ATTEND Hospitalist
PROC: 5A09357 Assistance with Respiratory Ventilation, Less than 24 Consecutive Hours, Continuous Positive Airway Pressure (ICD-10-PCS; principal; 2021-01-06)
DX: J96.01 Acute respiratory failure with hypoxia (principal); G93.41 Metabolic encephalopathy; E66.2 Morbid (severe) obesity with alveolar hypoventilation; E87.1 Hypo-osmolality and hyponatremia; J44.1 Chronic obstructive pulmonary disease with (acute) exacerbation; J96.02 Acute respiratory failure with hypercapnia; D64.9 Anemia, unspecified; Z68.41 Body mass index [BMI] 40.0-44.9, adult; D72.829 Elevated white blood cell count, unspecified; E03.9 Hypothyroidism, unspecified; E88.09 Other disorders of plasma-protein metabolism, not elsewhere classified; F17.200 Nicotine dependence, unspecified, uncomplicated; F25.9 Schizoaffective disorder, unspecified; F41.9 Anxiety disorder, unspecified; I10 Essential (primary) hypertension
CPT/HCPCS: 36415; 36600; 71045; 80048; 80053; 80061; 80178; 82803; 83036; 83735; 83880; 84100; 84145; 84439; 84443; 84484; 85025; 87081; 93005; 94640; 94660; 96372; 99291; G0378; J1650; J7060; Q0162; J2930; J7030; J7512